=== PATIENT | male | born 1995 | race African-American/Black ===

== ENCOUNTER 2020-06-03 13:06 | Emergency (ER) | payer SELFPAY ==
--- NOTE | 2020-06-03 13:11 | PDOC ---
Rapid Medical Evaluation Time Seen by Provider: 06/03/20 13:09 Medical Evaluation: Allergies Allergy/AdvReac Type Severity Reaction Status Date / Time No Known Allergies Allergy Verified 06/03/20 13:08 06/03/20 13:09 CC: rt hip pain worse with movement, no visable mass, no pain to testicles, urinary freq Exam:No cva tenderness, vss Plan: UA, Ucx, gc/chylam Discharge Disposition - Diagnosis Urinary frequency - Referrals - Patient Instructions - Post Discharge Activity
[2020-06-03 13:13] VITALS: BP 140/88; PULSE 83; TEMP 98.7; BMI 32.5
--- OUTSIDE RECORDS SUMMARY | 2020-06-03 13:27 | XMS ---
:1995 Author Organization [facility] Support Name Relationship Address Phone KOGN Unavailable [address] [place] [address] ELOINA EID [employer]NER [address] [place] [address] Re-disclosure Warning The records that you are about to access may contain information from federally- assisted alcohol or drug abuse programs. If such information is present, then the following federally mandated warning applies: This information has been disclosed to you from records protected by federal confidentiality rules (42 CFR part 2). The federal rules prohibit you from making any further disclosure of this information unless further disclosure is expressly permitted by the written consent of the person to whom it pertains or as otherwise permitted by 42 CFR part 2. A general authorization for the release of medical or other information is NOT sufficient for this purpose. The Federal rules restrict any use of the information to criminally investigate or prosecute any alcohol or drug abuse patient.The records that you are about to access may contain highly sensitive health information, the redisclosure of which is protected by Article 27-F of the [facility] Public Health law. If you continue you may haveaccess to information: Regarding HIV / AIDS; Provided by facilities licensed or operated by the [facility] Office of Mental Health; or Provided by the [facility] Office for People With Developmental Disabilities. If such information is present, then the following [facility] mandated warning applies: This information has been disclosed to you from confidential records which are protected by state law. State law prohibits you from making any further disclosure of this information without the specific written consent of the person to whom it pertains, or as otherwise permitted by law. Any unauthorized further disclosure in violation of state law may result in a fine or penitentiary sentence or both. A general authorization for the release of medical or other information is NOT sufficient authorization for further disclosure. Insurance Providers Payer name Policy type Policy ID Covered Covered libertarian's Policy P ann / Coverage libertarian ID relationship to [employer] ormation type anton SELF PAY SP INSURANCE Results ID Date Data Source [id number] 11/23/2019 12:00:00 AM EDT [place] Name Value Range Interpretation Code Description Data Jerri rce(s) Supporting Document(s ) 2019-nCoV [facility] RNA XXX TALHA+probe- Imp This lab was ordered by MARK REYES and reported by [employer] Procedure
[2020-06-03 13:56] LABS: URINE APPEARANCE CLEAR; URINE BILIRUBIN NEGATIVE (NEGATIVE); URINE COLOR YELLOW; URINE GLUCOSE (UA) NEGATIVE (NEGATIVE); URINE KETONE NEGATIVE (NEGATIVE); URINE LEUK ESTERASE NEGATIVE (NEGATIVE); URINE NITRITE NEGATIVE (NEGATIVE); URINE PROTEIN NEGATIVE (NEGATIVE)
--- NOTE | 2020-06-03 14:18 | PDOC ---
History of Present Illness - General Chief Complaint: Urinary Problem Stated Complaint: PAIN Time Seen by Provider: 06/03/20 13:09 - History of Present Illness Initial Comments: 06/03/20 14:13 24-year-old male no comorbidities presents for evaluation of right hip pain and lower abdominal pain x3 weeks with urinary frequency no systemic symptoms. Past History - Medical History Allergies/Adverse Reactions: Allergies Allergy/AdvReac Type Severity Reaction Status Date / Time No Known Allergies Allergy Verified 06/03/20 13:08 Home Medications: Ambulatory Orders No Home Medications 0 dose .ROUTE UTDICT 05/29/12 COPD: No - Immunization History Immunization Up to Date: Yes - Psycho-Social/Smoking History Smoking Status: No Smoking History: Current every day smoker Have you smoked in the past 12 months: Yes Number of Cigarettes Smoked Daily: 0 Information on smoking cessation initiated: Yes - Substance Abuse Hx (Audit-C & DAST Scrn) How often the patient has a drink containing alcohol: Monthly or less Number of drinks the patient has on a typical day: 1 or 2 How often the patient has six or more drinks on one occasion: Never Score: In Men: 4 or > Positive; In Women: 3 or > Positive: 1 Screen Result (Pos requires Nsg. Audit-10AR): Negative In the last yr the pt used illegal drug/Rx for NonMed reason: Yes Score: Yes response is considered Positive: 1 Screen Result (Positive result requires Nsg. DAST-10): Positive Review of Systems - Review of Systems Constitutional: No: Fever : Yes: Frequency. No: Burning, Dysuria, Discharge, Flank Pain Musculoskeletal: Yes: Joint Pain *Physical Exam - Vital Signs Last Vital Signs Temp Pulse Resp BP Pulse Ox 98.7 F 83 18 140/88 100 06/03/20 13:09 06/03/20 13:09 06/03/20 13:09 06/03/20 13:09 06/03/20 13:09 - Physical Exam General Appearance: Yes: Nourished, Appropriately Dressed. No: Apparent Distr ess HEENT: positive: Symmetrical Neck: positive: Supple Respiratory/Chest: negative: Respiratory Distress Gastrointestinal/Abdominal: positive: Flat, Soft, Other (Mild inguinal tenderness On the right). 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 No palpable mass or deformity felt on examination. Right hip greater troches bursitis. Follow-up with Ortho Discussed use of Tylenol and Motrin Symptoms are going on for about 3 weeks. Patient also reports frequency urine is clean. He has no concerns for STDs. I have reviewed the pathophysiology with the patient. They are in agreement with the treatment plan all questions were answered to their satisfaction. Understanding for follow-up without fail was also conveyed to the patient. Again they are in agreement. Discharge - Discharge Information Problems reviewed: Yes Clinical Impression/Diagnosis: Urinary frequency, Trochanteric bursitis, right hip Condition: Stable Disposition: HOME - Admission No - Follow up/Referral Referrals: Victoriano Kessler MD [Staff Physician] - Ishmael Blue DO [Staff Physician] - - Patient Discharge Instructions Additional Instructions: Tylenol and Motrin for pain. Return to the emergency room for worsening symptoms. Without fail follow-up with both general surgery and orthopedic surgery within the next 1 to 2 days for further evaluation and treatment options. Tylenol Motrin as directed for pain as we discussed. - Post Discharge Activity
== END 2020-06-03 14:37 | disposition home or self-care (01) ==
LOC: JERFT 13:06
DX: R35.0 Frequency of micturition (principal); M70.61 Trochanteric bursitis, right hip
CPT/HCPCS: 36415; 81003; 87086; 87491; 87591; 99283-25